=== PATIENT | male | born 1965 | race Caucasian/White ===

== ENCOUNTER 2018-05-29 12:16 | Emergency (ER) | payer BC ==
[2018-05-29] MEDS ORDERED: Lidocaine 2% 20 ML MDV INFILT ONE (12:17)
[2018-05-29] MEDS ORDERED: cefTRIAXone 1,000 MG VIAL IM STA (13:11)
[2018-05-29] MEDS ORDERED: Diphtheria,Pertussis(Acell),Tetanus Vaccine 0.5 ML SDV IM ONE (13:11)
--- NOTE | 2018-05-29 13:11 | EDM.PDOC ---
ED HPI GENERAL MEDICAL PROBLEM - General Chief Complaint: Laceration Stated Complaint: laceration Time Seen by Provider: 05/29/18 12:16 Source of Information: Reports: Patient History Limitations: Reports: No Limitations - History of Present Illness INITIAL COMMENTS - FREE TEXT/NARRATIVE: 52 y.o.w.m came to the ed after he injured his left ring olive can while taking out the garbage. The wound was bleeding with a pulsating stream. Pressure was applied to the wound stop the bleed. Pt had FROM of all his fingers. No F/C no N/V/D no Dizziness or any other acute medical issues. BP 150 /107 RR 10 Pulse ox 95% on RA temp 36.8 Pulse 85 Onset Date: 05/29/18 Onset Time: 11:00 Duration: Hour(s):, Getting Worse Location: Reports: Upper Extremity, Left (4th left finger.) Quality: Reports: Ache, Dull, Pressure Severity: Mild Improves with: Reports: Rest Worsens with: Reports: Movement Context: Reports: Trauma Associated Symptoms: Reports: No Other Symptoms - Related Data Allergies Allergy/AdvReac Type Severity Reaction Status Date / Time No Known Allergies Allergy Verified 05/29/18 12:36 Home Meds: Home Meds Amoxicillin/Potassium Clav [Augmentin 875-125 Tablet] 1 each PO BID #20 tablet 05/29/18 [Rx] ED ROS GENERAL - Review of Systems Review Of Systems: See Below Constitutional: Reports: No Symptoms HEENT: Reports: No Symptoms Respiratory: Reports: No Symptoms Cardiovascular: Reports: No Symptoms Endocrine: Reports: No Symptoms GI/Abdominal: Reports: No Symptoms : Reports: No Symptoms Musculoskeletal: Reports: No Symptoms Skin: Reports: Wound (distal phalanx left ring finger) Neurological: Reports: No Symptoms Psychiatric: Reports: No Symptoms Hematologic/Lymphatic: Reports: No Symptoms Immunologic: Reports: No Symptoms ED EXAM, SKIN/RASH Exam: See Below Exam Limited By: No Limitations General Appearance: Alert, WD/WN, Mild Distress Eye Exam: Bilateral Eye: Normal Inspection Ears: Normal External Exam, Normal Canal Nose: Normal Inspection, Normal Mucosa Throat/Mouth: Normal Inspection, Normal Lips, Normal Gums, Normal Oropharynx, Normal Voice, No Airway Compromise Head: Atraumatic, Normocephalic Neck: Normal Inspection, Supple, Non-Tender, Full Range of Motion Respiratory/Chest: No Respiratory Distress, Lungs Clear, Normal Breath Sounds, No Accessory Muscle Use, Chest Non-Tender Cardiovascular: Normal Peripheral Pulses, Regular Rate, Rhythm, No Edema, No Gallop, No JVD, No Murmur, No Rub Peripheral Pulses: 1+: Brachial (L) GI/Abdominal: Normal Bowel Sounds, Soft, Non-Tender (Male) Exam: Deferred Rectal (Males) Exam: Deferred Back Exam: Normal Inspection, Full Range of Motion Extremities: Normal Inspection, Normal Range of Motion, Non-Tender, No Pedal Edema, Normal Capillary Refill Neurological: Alert, Oriented, CN II-XII Intact, Normal Cognition, Normal Gait, Normal Reflexes, No Motor/Sensory Deficits Psychiatric: Normal Affect, Normal Mood Skin: Warm, Dry, Normal Color, No Rash, Other (@ cm LAC left ring finger, distal phalanx) Location, Skin: Upper Extremity, Left (4th finger) Lymphatic: No Adenopathy ED SKIN PROCEDURES - Laceration/Wound Repair Left Anterior Distal Digit - 4th (Ring) Lac/Wound length In cm: 2 Appearance: Subcutaneous, Irregular Distal NVT: Neuro & Vascular Intact, No Tendon Injury Anesthetic Type: Local Local Anesthesia - Lidocaine (Xylocaine): 2% Plain Local Anesthetic Volume: 3cc Skin Prep: Providone-Iodine (Betadine) Saline Irrigation (cc's): 3 Exploration/Debridement/Repair: Wound Explored, In a Bloodless Field, Explored to Base Closed with: Sutures # of Sutures: 7 Suture Type: Interrupted, Other (ethilon) Tetanus Status Addressed: Yes (TD immunization) Complications: No Course - Vital Signs Text/Narrative:: 52 y.o.w.m came to the ed after he injured his left ring olive can while taking out the garbage. The wound was bleeding with a pulsating stream. Pressure was applied to the wound stop the bleed. Pt had FROM of all his fingers. No F/C no N/V/D no Dizziness or any other acute medical issues. BP 150 /107 RR 10 Pulse ox 95% on RA temp 36.8 Pulse 85 PE: WNWD W M with a left ring finger Lac, distal phalanx with a pulsating bleed. Imaging: Not indicated. Labs: Not indicated Procedure: Please see above Impression: Laceration of left ring finger, repaired in the ed\ Tx: TD immunization, Rocephin Reexam: Improved Plan: D/C with instructions Last Recorded V/S: Last Vital Signs Temp 36.9 C 05/29/18 13:37 Pulse 89 05/29/18 13:37 Resp 17 05/29/18 13:37 BP 149/89 H 05/29/18 13:37 Pulse Ox 97 05/29/18 13:37 - Orders/Labs/Meds Orders: Active Orders 24 hr Category Date Time Status Vaccines to be Administered [RC] PER UNIT ROUTINE Care 05/29/18 13:12 Active Meds: Medications Discontinued Medications Generic Name Dose Route Start Last Admin Trade Name Ortega PRN Reason Stop Dose Admin Ceftriaxone Sodium 1,000 mg 05/29/18 13:11 05/29/18 13:25 Rocephin IM 05/29/18 13:12 1,000 mg ONETIME STA Administration Diphtheria/Tetanus/Acell Pertussis 0.5 ml 05/29/18 13:11 05/29/18 13:26 Adacel IM 05/29/18 13:12 0.5 ml .ONCE ONE Administration Departure - Departure Time of Disposition: 13:13 Disposition: Home, Self-Care 01 Condition: Good Clinical Impression: Laceration - Discharge Information Prescriptions: Amoxicillin/Potassium Clav [Augmentin 875-125 Tablet] 1 each PO BID #20 tablet Instructions: Laceration Care, Adult, [id number], Amoxicillin extended- release tablets, Stitches, Ruben, or Adhesive Wound Closure, [id number] Referrals: PCP,None [Primary Care Provider] - Forms: ED Department Discharge Additional Instructions: Please take Motrin for pain, Augmentin as recommended, wound check 2-3 days, suture removal in 10-14 days. Please come back if your symptoms get worse acutely. - My Orders Last 24 Hours: My Active Orders 05/29/18 13:12 Vaccines to be Administered [RC] PER UNIT ROUTINE - Assessment/Plan Last 24 Hours: My Active Orders 05/29/18 13:12 Vaccines to be Administered [RC] PER UNIT ROUTINE
== END 2018-05-29 13:37 | disposition home or self-care (01) ==
LOC: FB.ED 12:16
DX: S61.215A Laceration without foreign body of left ring finger without damage to nail, initial encounter (principal); W26.8XXA Contact with other sharp object(s), not elsewhere classified, initial encounter; Z23 Encounter for immunization
CPT/HCPCS: 12001; 90471; 90715; 96372; 99283; J0696